=== PATIENT | female | born 2000 | race Caucasian/White ===

== ENCOUNTER 2024-07-12 06:04 | Day surgery (SDC) | payer OTHER, SELFPAY ==
[2024-06-23 12:05] VITALS: BMI 27.8
--- NOTE | 2024-07-11 17:05 | P.PNAN_ITS ---
Anes - Eval Pre Procedure Procedure: Operation Date: 07/12/24 07:30 Proposed Procedures p Bilateral Breast Augmentation Mammoplasty - Arnold Pagan MD Date/Time: 07/11/24 17:05 Pre Op Diagnosis: Micromastia Patient Data Age: 24 Gender: F Height: 1.63 m Weight: 73.5 kg Allergies Allergy/AdvReac Type Severity Reaction Status Date / Time banana AdvReac Unknown Nausea Verified 06/23/24 11:58 pseudoephedrine AdvReac Unknown Other Verified 06/23/24 11:58 [From Sudafed] Home Medications Medication Instructions Recorded Confirmed Type No Home Medications 06/23/24 06/23/24 History Patient hx anesthesia problems: none Family hx anesthesia problems: none Results Review: All pre-operative results and documents have been reviewed as part of the pre- operative evaluation. [facility] Past Medical History Medical History Overweight (BMI 25.0-29.9) Surgical History Surgical History [address] teeth extracted Social History Social History Smoking status: Never smoker Second hand tobacco smoke exposure: No Alcohol intake: never Substance use: never Substance use type: does not use Living arrangements: with family Spiritual care concerns: No Exam Day of Procedure 07/11/24 17:05 Patient weight: overweight
[2024-07-12] VITALS (8 sets, daily range): BP systolic 135–158; BP diastolic 84–96; PULSE 88–112; RESP 14–18; TEMP 36.6–37.4; O2SAT 99–100
[2024-07-12] MEDS: LACTATED RINGERS 1,000 ML 30 ML IV CONT ×2 (06:45→08:27)
--- NOTE | 2024-07-12 06:51 | WPDHPUPDATE1 ---
History and Physical Update Update Date/Time: 07/12/24 06:51 History and Physical has been reviewed, including an updated exam of the patient. There are NO changes in the patient's condition. Risks, benefits, and alternatives have been discussed and questions answered. Patient agrees to proceed with procedure.
--- NOTE | 2024-07-12 06:51 | P.OP_ITS ---
Procedure Note - Detailed Date of Procedure 07/12/24 Pre-op Diagnosis Micromastia Post-op Diagnosis Same Procedure Performed Bilateral augmentation mammaplasty Surgeon Arnold Pagan MD Anesthesia General Findings Bilateral Anurag Gaspar SoftTouch 360 cc Right - REF# SSLP-360 SN [sn] Dual plane 2 Left - REF# SSLP-360 Sn [sn] Dual plane 2 Description of Procedure She is here today for bilateral breast augmentation. Previously and again today the risks, benefits, alternatives were discussed in extensive detail. I wanted her to be very realistic about the risks involved as well as expectations. We discussed aftercare and what to monitor for. She understands she has a degree gandular ptosis and this will remain. If bothersome could proceed with second stage mastopexy (at her expense). Made sure answered all of her questions to her satisfaction today and consent was obtained. Marked in the preoperative holding area with their verification. The patient was taken to the operating room placed supine on the operating table. Anesthesia was provided by anesthesiology. A surgical time-out was taken. We cleansed the skin and 1% lidocaine and 0.25% Marcaine with epinephrine was used anesthetize as a field block. She was prepped and draped in a standard sterile fashion. Tegaderm nipple Hurley were placed. A 15 blade used to make an incision along the inframammary fold. Dissection was continued at 45 degree angle until the chest wall as identified. I elevatd in a dual plane fashion above the pectoralis then I incised the pectoralis major along its inferior border and completely released the inferior border leaving the medial border intact. I created a subpectoral pocket in the appropriate dimensions based on our preoperative planning for the implant. I then copiously irrigated with saline solution and verified a strict hem ostasis. Next the use a triple antibiotic and Betadine containing solution to irrigate the pocket. I washed my gloves with the triple antibiotic and Betadine solution. We washed the implant immediately upon opening it with this solution and only opened it when we needed it. I used implant funnel and no-touch technique. The implant was introduced into the pocket using the funnel. Having verified positioning of the implant this was closed using 2-0 PDS followed by 3-0 Monocryl in a running subcuticular 4-0 Monocryl followed by tissue glue. Fluffs and surgical bra were placed. Patient was awoke and taken to PACU without difficulty. All instrument sponge counts were correct at the end of the case. Estimated Blood Loss 25 Drains No Packing No Pathology None sent Complications No immediate complications Condition Stable Disposition PACU
[2024-07-12] MEDS: SCOPOLAMINE 1 MG PATCH 1 PATCH TRANSDERM (07:19)
--- NOTE | 2024-07-12 07:20 | WPDANESEPPF ---
Anes - Initial Pre Proc Eval Procedure: Operation Date: 07/12/24 07:30 Proposed Procedures p Bilateral Breast Augmentation Mammoplasty - Arnold Pagan MD Date/Time: 07/12/24 07:20 Surgeon: Arnold Pagan MD Pre Op Diagnosis: micromastia Pre Op Diagnosis: Micromastia Patient Data Age: 24 Gender: F Height: 1.63 m Weight: 75.25 kg Last Vital Signs Temp 37.4 C 07/12/24 06:27 Pulse 99 07/12/24 06:27 Resp 15 07/12/24 06:27 BP 152/85 H 07/12/24 06:27 Pulse Ox 100 07/12/24 06:27 O2 Del Method Room Air 07/12/24 06:27 Allergies Allergy/AdvReac Type Severity Reaction Status Date / Time banana AdvReac Unknown Nausea Verified 07/12/24 06:25 pseudoephedrine AdvReac Unknown Other Verified 07/12/24 06:25 [From [facility]] Home Medications Medication Instructions Recorded Confirmed Type No Home Medications 06/23/24 07/12/24 History : patient denies HCG: negative Patient hx anesthesia problems: none Family hx anesthesia problems: none Results Review: All pre-operative results and documents have been reviewed as part of the pre-operative evaluation. [facility] Past Medical History Medical History Overweight (BMI 25.0-29.9) Surgical History Surgical History [place] teeth extracted Social History Social History Smoking status: Never smoker Second hand tobacco smoke exposure: No Alcohol intake: never Substance use: never Substance use type: does not use Living arrangements: with family Spiritual care concerns: No Anes - Eval Final PreProcedure Day of Procedure 07/12/24 07:20 Patient weight: normal Heart: regular rate and rhythm Lungs: normal air movement Airway: Mallampati scale class II Neurological: alert and oriented Last oral intake: >/= 8 hours ASA classification: II Emergent: no Anesthetic plan: proceed Anesthesia type and monitoring: general LMA and standard monitoring Results Review: All pre-operative results and documents have been reviewed as part of the pre-operative evaluation. Informed Consent: The patient's anesthetic plan and its attendant risks and benefits were discussed with the patient/family/POA. Questions were solicited and answers provided to the satisfaction of the patient/family/POA.
[2024-07-12] MEDS: ceFAZolin SODIUM 2 GM/20 ML SW SYRINGE IV PUSH (07:25)
[2024-07-12] MEDS: LIDO 1%/EPINEPHRINE 1:100,000 10 ML VIAL 30 ML INFILTRATE (07:32)
[2024-07-12] MEDS: TRANEXAMIC ACID 1,000 MG/10 ML AMPUL 1000 MG IV PUSH (07:47)
[2024-07-12] MEDS: NACL 0.9% IRRIG POUR BOTTLE 900 ML, GENTAMICIN SULFATE INJ 160 MG, ceFAZolin 2 GM, POVI... IRRIGATION (08:08)
[2024-07-12] MEDS: fentaNYL CITRATE INJ (*CRX) 100 MCG/2 ML VIAL 25 MCG IV PUSH ×4 (08:43→09:00)
--- NOTE | 2024-07-12 09:10 | SUR.PHASEI ---
PT AWAKE AND ALERT. TALKATIVE. NO LONGER TEARFUL. STATES PAIN TOLERABLE AT 3/10 NOW. DENIES NAUSEA AT THIS TIME.
--- NOTE | 2024-07-12 10:20 | SUR.PHASEII ---
LATE NOTE; 1020; PT C/O TIP OF TONGUE IS NUMB TONGUE MIDLINE. SPEECH CLEAR. DR CASTILLO NOTIFIED. DR CASTILLO IN TO SEE PT.
== END 2024-07-12 10:00 | disposition home or self-care (01) ==
PROVIDERS: Visit Provider Surgery Plastic and Reconstructive Surgery
PROC: (CPT 19325; principal; 2024-07-12 07:30)
DX: N62 Hypertrophy of breast (principal)
CPT/HCPCS: 19325